=== PATIENT | male | born 1980 | race Caucasian/White ===

== ENCOUNTER 2017-06-04 09:10 | Observation (INO) | payer MEDICAID ==
[~2017-06-04] VITALS: Ht 157.5 cm; Wt 70.0 kg
[~2017-06-04 09:10] MED LIST: BENZ1TAB61 PO; BUPR-173 PO; DIVA-68 PO; PROP10TA PO; QUET400T6 PO; SIMV20TA3 PO; VENL75CA6 PO
[2017-06-04 09:36] LABS: DAU SCREEN DISCLAIMER
[2017-06-04 10:02] LABS: HEMATOCRIT 44.9 % (39.2-51.8); HEMOGLOBIN 15.2 g/dL (13.7-18.0); WHITE BLOOD COUNT 8.7 x10^3/uL (3.4-10)
[2017-06-04 10:18] LABS: ACETAMINOPHEN < 2 mcg/mL (10-30); BLOOD UREA NITROGEN 11 mg/dL (7-18)
[2017-06-04] MEDS ORDERED: NICOTINE 21 MG/24 HR PATCH.TD24 ONE (14:13)
[2017-06-04] MEDS: NICOTINE 21 MG/24 HR PATCH.TD24 TD SCH (14:20)
[2017-06-04] MEDS ORDERED: BISACODYL 10 MG SUPP PR PRN (14:30)
[2017-06-04] MEDS ORDERED: ENALAPRILAT 1.25 MG/ML, 2ML IVPush PRN (14:30)
[2017-06-04] MEDS ORDERED: NICOTINE 21 MG/24 HR PATCH.TD24 TD ONE (14:30)
[2017-06-04] MEDS ORDERED: DOCUSATE 100 MG CAPSULE PO PRN (14:30)
[2017-06-04] MEDS: ACETAMINOPHEN 325 MG TABLET PO PRN (17:06)
[2017-06-04 19:30] VITALS: BP 113/71
[2017-06-04] MEDS: SIMVASTATIN 20 MG TABLET PO SCH (20:42)
[2017-06-04] MEDS: DIVALPROEX 500 MG TABLET.DR PO SCH (20:42)
[2017-06-04] MEDS: QUETIAPINE 100MG TABLET PO SCH (20:43)
[2017-06-04 22:59] VITALS: BP 100/73
[2017-06-04] MEDS: LORazepam 1MG TABLET PO PRN (23:00)
[2017-06-05 08:00] VITALS: BP 106/75
[2017-06-05] MEDS: ACETAMINOPHEN 325 MG TABLET PO PRN (09:56)
[2017-06-05] MEDS: NICOTINE 21 MG/24 HR PATCH.TD24 TD SCH (15:03)
[2017-06-05 19:36] VITALS: BP 127/86
[2017-06-05] MEDS: QUETIAPINE 100MG TABLET PO SCH (20:23)
[2017-06-05] MEDS: SIMVASTATIN 20 MG TABLET PO SCH (20:23)
[2017-06-05] MEDS: DIVALPROEX 500 MG TABLET.DR PO SCH (20:23)
[2017-06-05] MEDS: LORazepam 1MG TABLET PO PRN (21:00)
[2017-06-06 09:04] VITALS: BP 118/84
[2017-06-06] MEDS: NICOTINE 21 MG/24 HR PATCH.TD24 TD SCH (15:32)
[2017-06-06 19:45] VITALS: BP 93/64
[2017-06-06] MEDS: DIVALPROEX 500 MG TABLET.DR PO SCH (20:37)
[2017-06-06] MEDS: SIMVASTATIN 20 MG TABLET PO SCH (20:38)
[2017-06-06] MEDS: QUETIAPINE 100MG TABLET PO SCH (20:38)
[2017-06-06] MEDS: LORazepam 1MG TABLET PO PRN (21:38)
[2017-06-07] MEDS: LORazepam 1MG TABLET PO PRN (01:40)
[2017-06-07 07:38] VITALS: BP 139/93
[2017-06-07] MEDS ORDERED: DIVA-68 PO (14:25)
[2017-06-07] MEDS ORDERED: BUPR-173 PO (14:25)
[2017-06-07] MEDS ORDERED: QUET100T PO (14:25)
[2017-06-07] MEDS: NICOTINE 21 MG/24 HR PATCH.TD24 TD SCH (14:30)
== END 2017-06-07 15:14 | disposition home or self-care (01) ==
LOC: ED 11:40 → EDIP 11:41 → INTOOBSV 11:41 → ED 11:46 → 3E 15:37
PROVIDERS: ADMIT Hospitalist; ATTEND Hospitalist
DX: R45.851 Suicidal ideations (principal); R00.0 Tachycardia, unspecified; E78.5 Hyperlipidemia, unspecified; F25.9 Schizoaffective disorder, unspecified; F31.9 Bipolar disorder, unspecified; I10 Essential (primary) hypertension; F17.210 Nicotine dependence, cigarettes, uncomplicated; E78.00 Pure hypercholesterolemia, unspecified; Z91.14 Patient's other noncompliance with medication regimen
CPT/HCPCS: 36415; 80048; 80307; 80329; 82040; 85025; 99285; G0378; G0480

== ENCOUNTER 2017-10-21 08:39 | Emergency (ER) | payer MEDICAID ==
[~2017-10-21] VITALS: Ht 167.6 cm; Wt 77.1 kg
[~2017-10-21 08:39] MED LIST changes: +QUET100T PO
[2017-10-21 08:42] VITALS: BP 127/84
== END 2017-10-21 10:43 | disposition home or self-care (01) ==
LOC: ED 09:02
DX: S90.122A Contusion of left lesser toe(s) without damage to nail, initial encounter (principal); X58.XXXA Exposure to other specified factors, initial encounter; Y93.89 Activity, other specified; Y92.009 Unspecified place in unspecified non-institutional (private) residence as the place of occurrence of the external cause; Y99.8 Other external cause status
CPT/HCPCS: 99284

== ENCOUNTER 2020-06-18 09:04 | Inpatient (IN) | payer MEDICAID ==
[~2020-06-18] VITALS: Ht 172.7 cm; Wt 86.0 kg
[~2020-06-18 09:04] MED LIST changes: +DIVA-61 PO; -DIVA-68 PO; -PROP10TA PO; +PROP10TA16 PO; -QUET400T6 PO; +QUET400T7 PO; +SIMV20TA19 PO; -SIMV20TA3 PO
[2020-06-18] MEDS ORDERED: AMAN100C7 PO (09:41)
[2020-06-18] MEDS ORDERED: HYDR50TA99 PO (09:41)
[2020-06-18] MEDS ORDERED: OLAN10TA9 PO (09:41)
[2020-06-18] MEDS ORDERED: DIVA500T4 PO (09:41)
[2020-06-18] MEDS ORDERED: CITA40TA5 PO (09:41)
[2020-06-18 09:57] LABS: O2 FLOW RA L/min
[2020-06-18] MEDS ORDERED: ONDANSETRON 2MG/ML, 2ML IVPush ONE (10:00)
[2020-06-18] MEDS ORDERED: SODIUM CHLORIDE 0.9% 1,000ML IVBOLUS ONE ×2 (10:00→11:30)
[2020-06-18 10:03] LABS: BASOPHILS # (AUTO) 0.01 x10^3/uL (0-0.1); BASOPHILS % (AUTO) 0 % (0-1); EOSINOPHILS # (AUTO) 0.08 x10^3/uL (0-0.4); EOSINOPHILS % (AUTO) 1 % (1-7); LYMPHOCYTES # (AUTO) 0.81 x10^3/uL (1-3.4); LYMPHOCYTES % (AUTO) 15 % (22-44); MD NO; MEAN CORPUSCULAR HEMOGLOBIN 29.4 pg (27.5-34.5); MEAN CORPUSCULAR HGB CONC 32.6 g/dL (33.2-36.2); MEAN CORPUSCULAR VOLUME 90.1 fL (81-97); MEAN PLATELET VOLUME 9.1 fL (7.4-10.4); MONOCYTES # (AUTO) 0.37 x10^3/uL (0.2-0.8); MONOCYTES % (AUTO) 7 % (2-9); NEUTROPHILS # (AUTO) 4.32 x10^3/uL (1.8-6.8); NEUTROPHILS % (AUTO) 77 % (42-75); PLATELET COUNT 185 x10^3/uL (130-400); RED BLOOD COUNT 5.75 x10^6/uL (4.38-5.82); RED CELL DISTRIBUTION WIDTH 14.4 % (9.4-14.8)
--- NOTE | 2020-06-18 10:04 | NUR ---
PT HAS CO INCREASED THIRST, URINATION, ABDOMINAL PAIN, BODY NUMBNESS FOR 2 DAYS. PT FSBS IN TRIAGE >600. HX OF BIPOLAR, DENIES HX OF DIABETES, DENIES CP, SOB.
[2020-06-18 10:11] LABS: ALANINE AMINOTRANSFERASE 27 U/L (12-78); ALBUMIN 3.7 g/dL (3.4-5.0); ANION GAP 16 mmol/L (5-15); CHLORIDE 77 mmol/L (98-107); CREATININE 1.39 mg/dL (0.7-1.3)
[2020-06-18 10:13] LABS: ALKALINE PHOSPHATASE 271 U/L (45-117); BILIRUBIN,TOTAL 0.7 mg/dL (0.2-1.0); TOTAL PROTEIN 8.5 g/dL (6.4-8.2)
[2020-06-18 10:16] LABS: MICROSCOPIC NOT IND
[2020-06-18 10:27] LABS: ACETONE, SERUM Large (80mg/dL) (Negative)
[2020-06-18] MEDS ORDERED: ONDANSETRON 2MG/ML, 2ML ONE (10:34)
[2020-06-18] MEDS ORDERED: SODIUM CHLORIDE 0.9% 1,000 ML IV ONE (10:44)
[2020-06-18] MEDS ORDERED: REGULAR INSULIN 100 UNITS in SODIUM CHLORIDE 0.9% 99 ML IV PRN ×2 (10:44→11:02)
--- NOTE | 2020-06-18 11:00 | NUR ---
PT RESTING, VSS, IVF. PT VOIDED TO URINAL. REQUESTING WATER
[2020-06-18] MEDS: SODIUM CHLORIDE 0.9% 1,000 ML IV SCH ×3 (11:02→17:54)
[2020-06-18] MEDS ORDERED: LABETALOL 5MG/ML, 20ML IVPush PRN (11:30)
[2020-06-18] MEDS ORDERED: ONDANSETRON ODT 4 MG PO PRN (11:30)
[2020-06-18] MEDS ORDERED: BISACODYL 10 MG SUPP PR PRN (11:30)
[2020-06-18] MEDS ORDERED: DOCUSATE 100 MG CAPSULE PO PRN (11:30)
[2020-06-18] MEDS ORDERED: ACETAMINOPHEN 325 MG TABLET PO PRN (11:30)
[2020-06-18] MEDS ORDERED: ENALAPRILAT 1.25 MG/ML, 2ML IVPush PRN (11:30)
[2020-06-18] MEDS ORDERED: POLYETHYLENE GLYCOL 17 GM PACKET PO PRN (11:30)
--- NOTE | 2020-06-18 12:04 | NUR ---
VOIDED 1400 ML IN URINAL
--- NOTE | 2020-06-18 12:05 | NUR ---
REPORT TO UMAÑA
[2020-06-18 15:32] VITALS: BP 109/73
[2020-06-18 17:23] LABS: ANION GAP 9 mmol/L (5-15); CALCIUM 9.5 mg/dL (8.5-10.1); CHLORIDE 101 mmol/L (98-107); CREATININE 0.91 mg/dL (0.7-1.3)
[2020-06-18] MEDS ORDERED: POTASSIUM CHLORIDE 20 MEQ TAB.ER.PRT PO ONE (18:00)
[2020-06-18] MEDS: ENOXAPARIN 40 MG/0.4 ML SQ SCH (20:32)
[2020-06-18] MEDS: INSULIN LISPRO 100 UNITS/ML, PEN SQ-INSULIN SCH (20:32)
[2020-06-18] MEDS: INSULIN GLARGINE 100 UNITS/ML, PEN SQ-INSULIN SCH (20:32)
[2020-06-18 21:55] VITALS: BP 98/70
[2020-06-18] MEDS ORDERED: TEMA30CA PO (22:00)
[2020-06-18] MEDS ORDERED: hydrOXyzine 50MG TABLET PO PRN (22:30)
[2020-06-18] MEDS: DIVALPROEX 500 MG TAB.ER.24H PO SCH (22:51)
[2020-06-18] MEDS: TEMAZEPAM 30 MG CAPSULE PO SCH (22:51)
[2020-06-18] MEDS: OLANZAPINE 10 MG TABLET PO SCH (22:52)
[2020-06-18] MEDS: CITALOPRAM 20 MG TABLET PO SCH (22:52)
[2020-06-18] MEDS: AMANTADINE 100 MG CAPSULE PO SCH (22:53)
[2020-06-19 01:15] VITALS: BP 111/75
[2020-06-19] MEDS: SODIUM CHLORIDE 0.9% 1,000 ML IV SCH (04:02)
[2020-06-19] MEDS ORDERED: metFORMIN 850 MG TABLET ONE (07:54)
[2020-06-19] MEDS: metFORMIN 850 MG TABLET PO SCH ×2 (08:07→15:55)
[2020-06-19] MEDS: INSULIN GLARGINE 100 UNITS/ML, PEN SQ-INSULIN SCH ×2 (08:07→20:30)
[2020-06-19] MEDS: INSULIN LISPRO 100 UNITS/ML, PEN SQ-INSULIN SCH ×4 (08:07→20:29)
[2020-06-19 08:47] VITALS: BP 115/78
[2020-06-19] MEDS: NICOTINE 21 MG/24 HR PATCH.TD24 TD SCH (15:55)
[2020-06-19] MEDS: ENOXAPARIN 40 MG/0.4 ML SQ SCH (20:20)
[2020-06-19] MEDS: OLANZAPINE 10 MG TABLET PO SCH (20:30)
[2020-06-19] MEDS: CITALOPRAM 20 MG TABLET PO SCH (20:30)
[2020-06-19] MEDS: AMANTADINE 100 MG CAPSULE PO SCH (20:30)
[2020-06-19] MEDS: TEMAZEPAM 30 MG CAPSULE PO SCH (20:30)
[2020-06-19] MEDS: DIVALPROEX 500 MG TAB.ER.24H PO SCH (20:31)
[2020-06-19 20:47] VITALS: BP 114/79
[2020-06-20 02:29] VITALS: BP 99/69
[2020-06-20 07:07] VITALS: BP 125/86
[2020-06-20] MEDS: INSULIN LISPRO 100 UNITS/ML, PEN SQ-INSULIN SCH ×4 (07:45→20:00)
[2020-06-20] MEDS: metFORMIN 850 MG TABLET PO SCH ×2 (07:47→16:56)
[2020-06-20] MEDS: INSULIN GLARGINE 100 UNITS/ML, PEN SQ-INSULIN SCH ×2 (07:49→20:00)
[2020-06-20] MEDS ORDERED: GLUCAGON 1 MG IM PRN (14:00)
[2020-06-20] MEDS ORDERED: DEXTROSE 4 GM TAB.CHEW PO PRN (14:00)
[2020-06-20] MEDS ORDERED: DEXTROSE 50%, 50ML SYRINGE IVPush PRN (14:00)
[2020-06-20 14:18] VITALS: BP 115/79
[2020-06-20] MEDS: NICOTINE 21 MG/24 HR PATCH.TD24 TD SCH (15:42)
[2020-06-20] MEDS: CITALOPRAM 20 MG TABLET PO SCH (19:59)
[2020-06-20] MEDS: AMANTADINE 100 MG CAPSULE PO SCH (19:59)
[2020-06-20] MEDS: OLANZAPINE 10 MG TABLET PO SCH (19:59)
[2020-06-20] MEDS: TEMAZEPAM 30 MG CAPSULE PO SCH (19:59)
[2020-06-20] MEDS: DIVALPROEX 500 MG TAB.ER.24H PO SCH (19:59)
[2020-06-20] MEDS: SODIUM CHLORIDE FLUSH 10ML SYR IVF SCH (20:02)
[2020-06-20] MEDS: ENOXAPARIN 40 MG/0.4 ML SQ SCH (20:02)
[2020-06-20 20:04] VITALS: BP 127/88
[2020-06-21 01:34] VITALS: BP 98/57
[2020-06-21 06:12] VITALS: BP 122/81
[2020-06-21 06:44] LABS: ANION GAP 8 mmol/L (5-15); CALCIUM 8.9 mg/dL (8.5-10.1); CHLORIDE 108 mmol/L (98-107); CREATININE 0.53 mg/dL (0.7-1.3)
[2020-06-21] MEDS: metFORMIN 850 MG TABLET PO SCH (08:35)
[2020-06-21] MEDS: INSULIN LISPRO 100 UNITS/ML, PEN SQ-INSULIN SCH ×2 (08:43→11:00)
[2020-06-21] MEDS: SODIUM CHLORIDE FLUSH 10ML SYR IVF SCH (08:44)
[2020-06-21] MEDS: INSULIN GLARGINE 100 UNITS/ML, PEN SQ-INSULIN SCH (09:00)
[2020-06-21] MEDS ORDERED: INSULIN GLARGINE 100 UNITS/ML, PEN SQ-INSULIN ONE (11:00)
[2020-06-21] MEDS ORDERED: METF500T PO (12:17)
[2020-06-21] MEDS ORDERED: GLIP5TAB10 PO (12:17)
[2020-06-21] MEDS ORDERED: INSU100I13 SQ-INSULIN (12:17)
[2020-06-21] MEDS ORDERED: metFORMIN 500 MG TABLET PO SCH (17:00)
== END 2020-06-21 13:05 | disposition left against medical advice (07) | DRG 420 ==
LOC: ED 10:42 → EDIP 10:56 → CCU 12:34 → 3N 21:00
PROVIDERS: ADMIT Internal Medicine; ATTEND Internal Medicine
DX: E11.00 Type 2 diabetes mellitus with hyperosmolarity without nonketotic hyperglycemic-hyperosmolar coma (NKHHC) (principal); E11.65 Type 2 diabetes mellitus with hyperglycemia; E78.00 Pure hypercholesterolemia, unspecified; E78.5 Hyperlipidemia, unspecified; E86.0 Dehydration; E87.5 Hyperkalemia; F20.9 Schizophrenia, unspecified; F31.9 Bipolar disorder, unspecified; I10 Essential (primary) hypertension; N17.0 Acute kidney failure with tubular necrosis; Z72.0 Tobacco use; E87.1 Hypo-osmolality and hyponatremia
CPT/HCPCS: 36415; 71045; 80048; 80053; 81003; 82010; 82550; 82803; 82962; 83036; 83690; 83735; 83930; 84100; 84443; 85025; 87081; 93005; G0378; J1650; J1815; J2405; J7030